=== PATIENT | male | born 1945 | race Caucasian/White ===

== ENCOUNTER 2019-06-20 12:23 | Inpatient (IN) | payer BC, MEDICARE ==
[~2019-06-20] VITALS: Ht 162.6 cm; Wt 86.1 kg
--- NOTE | 2019-06-20 12:44 | NUR ---
Roosevelt finney from [facility]; states Digoxin level is 1.1
--- NOTE | 2019-06-20 13:00 | NUR ---
BIB CARE FLIGHT. FROM [facility] PT TO THAT LOCATION CO SWELLING L LOWER LEG POSS DVT ON EXAM THEY HAD CONCERNS FOR ELEVATED K POSS DIG TOXIC AFIB PT ARRIVED A04 ABLE TO STAND AND PIVIOT FROM [facility]OT TO [facility] BILAT DISTAL LOWER EXT PULSES NOTED ON ARRIVAL PT HAS PRIOR HX AFIB. PT'S AOX4. RESPS EVEN AND UNLABORED. ALL MONITORS IN PLACE. CALL LIGHT WITHIN REACH.
--- NOTE | 2019-06-20 13:06 | NUR ---
EKG DONE BY THIS RN AT BEDSIDE.
--- NOTE | 2019-06-20 13:13 | NUR ---
edmd at bedside to evaluate at this time.
[2019-06-20] MEDS ORDERED: SODIUM CHLORIDE 0.9% 1,000 ML IV ONE (13:27)
[2019-06-20] MEDS ORDERED: SODIUM CHLORIDE FLUSH 10ML SYR IVF ONE (13:30)
--- NOTE | 2019-06-20 13:33 | NUR ---
PT AMB TO BR WITH STEADY GAIT AT THIS TIME. URINE CUP GIVEN.
--- NOTE | 2019-06-20 13:42 | NUR ---
PT BACK TO ROOM WITH STEADY GAIT. PT PROVIDED URINE SAMPLE. UA SENT BY EMT.
--- NOTE | 2019-06-20 13:43 | NUR ---
NS INFUSING AT THIS TIME. PT TOLERATED WELL.
[2019-06-20 13:51] LABS: MICROSCOPIC NOT IND
[2019-06-20 14:06] LABS: BASOPHILS # (AUTO) 0.03 x10^3/uL (0-0.1); BASOPHILS % (AUTO) 0 % (0-1); EOSINOPHILS # (AUTO) 0.39 x10^3/uL (0-0.4); EOSINOPHILS % (AUTO) 5 % (1-7); LYMPHOCYTES # (AUTO) 1.67 x10^3/uL (1-3.4); LYMPHOCYTES % (AUTO) 22 % (22-44); MD NO; MEAN CORPUSCULAR HEMOGLOBIN 30.8 pg (27.5-34.5); MEAN CORPUSCULAR HGB CONC 32.1 g/dL (33.2-36.2); MEAN CORPUSCULAR VOLUME 96.1 fL (81-97); MEAN PLATELET VOLUME 7.8 fL (7.4-10.4); MONOCYTES # (AUTO) 0.94 x10^3/uL (0.2-0.8); MONOCYTES % (AUTO) 12 % (2-9); NEUTROPHILS # (AUTO) 4.62 x10^3/uL (1.8-6.8); NEUTROPHILS % (AUTO) 61 % (42-75); PLATELET COUNT 230 x10^3/uL (130-400); RED BLOOD COUNT 4.85 x10^6/uL (4.38-5.82); RED CELL DISTRIBUTION WIDTH 15.8 % (9.4-14.8)
[2019-06-20 14:12] LABS: INTERNATIONAL NORMALIZED RATIO 0.97 (0.93-1.1); PROTHROMBIN TIME 10.2 Seconds (9.6-11.5)
[2019-06-20 14:17] LABS: ALANINE AMINOTRANSFERASE 24 U/L (12-78); ALBUMIN 3.6 g/dL (3.4-5.0); ANION GAP 4 mmol/L (5-15); CALCIUM 10.8 mg/dL (8.5-10.1); CHLORIDE 116 mmol/L (98-107); CREATININE 1.69 mg/dL (0.7-1.3)
[2019-06-20] MEDS ORDERED: AMLO-150 PO (14:28)
[2019-06-20] MEDS ORDERED: ASPI-496 PO (14:29)
[2019-06-20] MEDS ORDERED: [UNRECOGNIZED DRUG - CODE] PO (14:29)
[2019-06-20] MEDS ORDERED: SODIUM CHLORIDE 0.9% 1,000 ML IV SCH (14:29)
[2019-06-20] MEDS ORDERED: ACETAMINOPHEN 325 MG TABLET PO PRN (14:30)
[2019-06-20] MEDS ORDERED: INSULIN REGULAR 100 UNITS/ML, 3ML VIAL IVPush ONE (14:30)
[2019-06-20] MEDS ORDERED: hydrALAzine 20 MG/ML, 1ML IVPush PRN (14:30)
[2019-06-20] MEDS ORDERED: PROMETHAZINE 25 MG/ML, 1ML IM PRN (14:30)
[2019-06-20] MEDS ORDERED: CALC250T PO (14:30)
[2019-06-20] MEDS ORDERED: LABETALOL 5MG/ML, 20ML IVPush PRN (14:30)
[2019-06-20] MEDS: SODIUM POLYSTYRENE SULFONATE ORAL SUSP PO ONE ×2 (14:30→17:04)
[2019-06-20] MEDS ORDERED: ONDANSETRON 2MG/ML, 2ML IVPush PRN (14:30)
[2019-06-20] MEDS ORDERED: DIGO125T85 PO (14:30)
[2019-06-20] MEDS ORDERED: DEXTROSE 50%, 50ML VIAL IVPush ONE (14:30)
[2019-06-20] MEDS ORDERED: MORPHINE SULFATE 4 MG/ML, 1ML IVPush PRN (14:30)
[2019-06-20] MEDS ORDERED: METO25TA35 PO (14:31)
[2019-06-20] MEDS ORDERED: OXYC15TA3 PO (14:32)
[2019-06-20] MEDS ORDERED: ORPH100T PO (14:32)
[2019-06-20 14:33] LABS: ALKALINE PHOSPHATASE 60 U/L (45-117); BILIRUBIN,TOTAL 0.4 mg/dL (0.2-1.0); TOTAL PROTEIN 7.7 g/dL (6.4-8.2)
[2019-06-20] MEDS ORDERED: POTA20TA14 PO (14:33)
[2019-06-20] MEDS ORDERED: PRED5POW8 PO (14:34)
[2019-06-20] MEDS ORDERED: SIMV40TA20 PO (14:34)
[2019-06-20] MEDS ORDERED: TRIA1TAB PO (14:35)
--- NOTE | 2019-06-20 14:39 | NUR ---
HOSPITALIST AT BEDSIDE AT THIS TIME.
--- NOTE | 2019-06-20 15:05 | NUR ---
REPORT GIVEN TO DIANNE BALDERAS. ALL QUESTIONS ANSWERED.
[2019-06-20 16:31] LABS: CREATININE,URINE RANDOM 67.4 mg/dL
[2019-06-20] MEDS ORDERED: VEDO300V IV (16:45)
[2019-06-20 17:24] VITALS: BP 123/76
[2019-06-20] MEDS ORDERED: SODIUM POLYSTYRENE SULFONATE ORAL SUSP PO ONE (18:00)
[2019-06-20 20:31] VITALS: BP 141/79
[2019-06-20] MEDS: LACTATED RINGERS 1,000 ML IV SCH (20:36)
[2019-06-20] MEDS: SIMVASTATIN 40 MG TABLET PO SCH (20:36)
[2019-06-20 22:43] LABS: ANION GAP 5 mmol/L (5-15); CALCIUM 10.5 mg/dL (8.5-10.1); CHLORIDE 118 mmol/L (98-107); CREATININE 1.67 mg/dL (0.7-1.3)
[2019-06-21] MEDS: LACTATED RINGERS 1,000 ML IV SCH ×4 (00:52→19:50)
[2019-06-21 00:57] VITALS: BP 146/89
[2019-06-21] MEDS ORDERED: OXYcodone 5 MG/5 ML ORAL.SOL UDC PO PRN (02:00)
[2019-06-21 04:12] LABS: OCCULT BLOOD POSITIVE (NEGATIVE)
[2019-06-21 04:15] LABS: CREATININE,URINE RANDOM 79.6 mg/dL
[2019-06-21 04:16] LABS: BASOPHILS # (AUTO) 0.03 x10^3/uL (0-0.1); BASOPHILS % (AUTO) 0 % (0-1); EOSINOPHILS # (AUTO) 0.22 x10^3/uL (0-0.4); EOSINOPHILS % (AUTO) 3 % (1-7); LYMPHOCYTES # (AUTO) 1.25 x10^3/uL (1-3.4); LYMPHOCYTES % (AUTO) 17 % (22-44); MD NO; MEAN CORPUSCULAR HEMOGLOBIN 30.9 pg (27.5-34.5); MEAN CORPUSCULAR HGB CONC 32.6 g/dL (33.2-36.2); MEAN CORPUSCULAR VOLUME 94.8 fL (81-97); MEAN PLATELET VOLUME 8.1 fL (7.4-10.4); MONOCYTES # (AUTO) 0.92 x10^3/uL (0.2-0.8); MONOCYTES % (AUTO) 13 % (2-9); NEUTROPHILS # (AUTO) 4.88 x10^3/uL (1.8-6.8); NEUTROPHILS % (AUTO) 67 % (42-75); PLATELET COUNT 221 x10^3/uL (130-400); RED BLOOD COUNT 4.41 x10^6/uL (4.38-5.82); RED CELL DISTRIBUTION WIDTH 15.2 % (9.4-14.8)
[2019-06-21 04:23] LABS: ALBUMIN 3.3 g/dL (3.4-5.0); ANION GAP 5 mmol/L (5-15); CHLORIDE 113 mmol/L (98-107)
[2019-06-21 04:28] LABS: ALANINE AMINOTRANSFERASE 20 U/L (12-78); ALKALINE PHOSPHATASE 51 U/L (45-117); BILIRUBIN,TOTAL 0.7 mg/dL (0.2-1.0); CREATININE 1.42 mg/dL (0.7-1.3); TOTAL PROTEIN 6.9 g/dL (6.4-8.2)
[2019-06-21 08:00] VITALS: BP 132/90
[2019-06-21] MEDS: OxyconTIN ER 15 MG TAB.ER PO SCH (09:38)
[2019-06-21] MEDS: METOPROLOL TARTRATE 25 MG TAB PO SCH (09:39)
[2019-06-21] MEDS: AMLODIPINE 5 MG TABLET PO SCH (09:39)
[2019-06-21 11:49] LABS: ANION GAP 8 mmol/L (5-15); CALCIUM 9.2 mg/dL (8.5-10.1); CHLORIDE 108 mmol/L (98-107); CREATININE 1.31 mg/dL (0.7-1.3)
[2019-06-21 15:17] VITALS: BP 123/73
[2019-06-21 16:02] LABS: ANION GAP 9 mmol/L (5-15); CALCIUM 9.4 mg/dL (8.5-10.1); CHLORIDE 107 mmol/L (98-107); CREATININE 1.28 mg/dL (0.7-1.3)
[2019-06-21] MEDS: OXYcodone/APAP 5/325MG TABLET PO PRN ×2 (16:38→20:36)
[2019-06-21 19:20] VITALS: BP 141/79
[2019-06-21] MEDS: SIMVASTATIN 40 MG TABLET PO SCH (20:36)
[2019-06-22 00:46] VITALS: BP 130/76
[2019-06-22] MEDS: OXYcodone/APAP 5/325MG TABLET PO PRN ×2 (02:47→13:49)
[2019-06-22] MEDS: LACTATED RINGERS 1,000 ML IV SCH ×2 (05:09)
[2019-06-22 05:43] LABS: BASOPHILS # (AUTO) 0.01 x10^3/uL (0-0.1); BASOPHILS % (AUTO) 0 % (0-1); EOSINOPHILS # (AUTO) 0.38 x10^3/uL (0-0.4); EOSINOPHILS % (AUTO) 7 % (1-7); LYMPHOCYTES # (AUTO) 1.61 x10^3/uL (1-3.4); LYMPHOCYTES % (AUTO) 28 % (22-44); MD NO; MEAN CORPUSCULAR HGB CONC 32.9 g/dL (33.2-36.2); MEAN CORPUSCULAR VOLUME 94.1 fL (81-97); MEAN PLATELET VOLUME 7.6 fL (7.4-10.4); MONOCYTES # (AUTO) 0.69 x10^3/uL (0.2-0.8); MONOCYTES % (AUTO) 12 % (2-9); NEUTROPHILS # (AUTO) 3.06 x10^3/uL (1.8-6.8); NEUTROPHILS % (AUTO) 53 % (42-75); PLATELET COUNT 195 x10^3/uL (130-400); RED BLOOD COUNT 4.25 x10^6/uL (4.38-5.82)
[2019-06-22 05:50] LABS: ALBUMIN 2.8 g/dL (3.4-5.0); ANION GAP 7 mmol/L (5-15); CALCIUM 9.4 mg/dL (8.5-10.1); CHLORIDE 109 mmol/L (98-107)
[2019-06-22 05:55] LABS: ALANINE AMINOTRANSFERASE 17 U/L (12-78); ALKALINE PHOSPHATASE 45 U/L (45-117); BILIRUBIN,TOTAL 0.6 mg/dL (0.2-1.0); CREATININE 1.23 mg/dL (0.7-1.3); TOTAL PROTEIN 6.1 g/dL (6.4-8.2)
[2019-06-22 08:02] VITALS: BP_SYST 118; BP_SYST 138; BP_DIAS 81; BP_DIAS 82
[2019-06-22] MEDS: METOPROLOL TARTRATE 25 MG TAB PO SCH (08:29)
[2019-06-22] MEDS: OxyconTIN ER 15 MG TAB.ER PO SCH (08:29)
[2019-06-22] MEDS: AMLODIPINE 5 MG TABLET PO SCH (08:29)
[2019-06-22 13:56] VITALS: BP 129/83
[2019-06-22] MEDS ORDERED: POTA20TA14 PO (14:15)
== END 2019-06-22 16:15 | disposition home or self-care (01) | DRG 640 ==
LOC: ED 14:21 → EDIP 14:22 → ED 14:26 → 4WST 15:16 → DCLOUNGE 06-22 16:08
PROVIDERS: ADMIT Internal Medicine; ATTEND Internal Medicine
DX: E87.5 Hyperkalemia (principal); N17.0 Acute kidney failure with tubular necrosis; D68.69 Other thrombophilia; I48.20 Chronic atrial fibrillation, unspecified; I48.92 Unspecified atrial flutter; K51.911 Ulcerative colitis, unspecified with rectal bleeding; E87.2 Acidosis; E78.5 Hyperlipidemia, unspecified; E83.42 Hypomagnesemia; E83.52 Hypercalcemia; E86.0 Dehydration; Z96.651 Presence of right artificial knee joint; G89.29 Other chronic pain; I11.0 Hypertensive heart disease with heart failure; I50.9 Heart failure, unspecified; Z79.82 Long term (current) use of aspirin; Z85.46 Personal history of malignant neoplasm of prostate; Z88.8 Allergy status to other drugs, medicaments and biological substances; Z90.79 Acquired absence of other genital organ(s); Z88.0 Allergy status to penicillin; Z91.018 Allergy to other foods; Z79.01 Long term (current) use of anticoagulants
CPT/HCPCS: 36415; 76770; 80048; 80053; 80162; 81003; 82272; 82306; 82330; 82436; 82550; 82570; 83735; 83935; 83970; 84100; 84133; 84300; 85014; 85018; 85025; 85610; 93005; 93922; 99285; G0378; J1815; J2270; J7030; J7120